=== PATIENT | male | born 1995 | race African-American/Black ===

== ENCOUNTER 2023-08-29 05:24 | Inpatient (IN) | payer OTHER ==
[2023-08-29] MEDS: SODIUM CHLORIDE 0.9% 500 ML INFUS.BAG IV ONE (06:27)
[2023-08-29 06:30] LABS: EPI CELLS 1 /uL (0-25.1); HYALINE CASTS 0 /uL (0-3.1); URINE APPEARANCE CLEAR; URINE BACTERIA 2 /uL (0-1359); URINE BILIRUBIN NEGATIVE (NEGATIVE); URINE COLOR YELLOW; URINE GLUCOSE (UA) 3+ (NEGATIVE); URINE KETONE 4+ (NEGATIVE); URINE LEUK ESTERASE NEGATIVE (NEGATIVE); URINE NITRITE NEGATIVE (NEGATIVE); URINE PROTEIN 2+ (NEGATIVE); URINE RBC 10 /uL (0-23.9); URINE UROBILINOGEN 0.2 mg/dL (0.2-1.0); URINE WBC 2 /uL (0-25.8)
[2023-08-29 06:31] LABS: VENOUS BASE EXCESS -9.6 mmol/L (-2-2); VENOUS O2 SATURATION 71.6 % (70-80); VENOUS PCO2 39.3 mmHg (38-52); VENOUS PH 7.253 (7.310-7.410)
[2023-08-29 06:46] LABS: CHLORIDE 84 mmol/L (98-107); SODIUM 127 mmol/L (136-145)
[2023-08-29 06:49] LABS: CO2 18 mmol/L (21-32); MAGNESIUM 2.5 mg/dL (1.8-2.4)
[2023-08-29 06:50] LABS: HEMATOCRIT 47.4 % (35.4-49); HEMOGLOBIN 16.4 GM/dL (11.7-16.9); MCH 23.2 pg (25.7-33.7); MCHC 34.6 g/dl (32.0-35.9); MEAN CELL VOLUME 67.1 fl (80-96); MEAN PLT VOLUME 10.6 fl (7.5-11.1); PLATELET COUNT 425 10^3/uL (134-434); RDW 18.5 % (11.9-15.9); WHITE BLOOD COUNT 13.2 K/mm3 (4.0-10.0)
[2023-08-29 06:52] LABS: CREATININE 1.8 mg/dL (0.55-1.3)
[2023-08-29 06:53] LABS: BILIRUBIN,TOTAL 1.5 mg/dL (0.2-1)
[2023-08-29 07:01] LABS: RBC 7.07 M/mm3 (4.00-5.60)
[2023-08-29 07:25] LABS: ALK PHOS 136 U/L (45-117); ANION GAP 25 mmol/L (4-13); BLOOD UREA NITROGEN 23.2 mg/dL (7-18); CALCIUM 7.6 mg/dL (8.5-10.1); GLUCOSE,RANDOM 821 mg/dL (74-106); POTASSIUM 6.5 mmol/L (3.5-5.1); TOT PROT 8.8 g/dl (6.4-8.2)
[2023-08-29] MEDS: LACTATED RINGERS SOLUTION 1,000 ML/1,000 ML INFUS.BAG IV STA ×2 (08:02→09:57)
[2023-08-29 08:14] LABS: CHLORIDE 87 mmol/L (98-107); POTASSIUM 5.6 mmol/L (3.5-5.1); SODIUM 131 mmol/L (136-145)
[2023-08-29 08:16] LABS: ANION GAP 24 mmol/L (4-13); CO2 20 mmol/L (21-32)
[2023-08-29 08:19] LABS: CREATININE 1.6 mg/dL (0.55-1.3)
[2023-08-29 08:22] LABS: BLOOD UREA NITROGEN 21.7 mg/dL (7-18); CALCIUM 7.6 mg/dL (8.5-10.1); GLUCOSE,RANDOM 745 mg/dL (74-106)
[2023-08-29] MEDS: INSULIN REGULAR 100 UNITS in SODIUM CHLORIDE 99 ML IVPB SCH (09:03)
[2023-08-29 09:45] LABS: ANISOCYTOSIS 2+; MACROCYTOSIS 0
[2023-08-29 09:47] LABS: PLATELET ESTIMATE ADEQUATE
[2023-08-29] MEDS: INSULIN REGULAR HUMAN 100 UNITS/ML *VIAL* (FOR IVP) IVPUSH ONE (09:50)
[2023-08-29] MEDS: LACTATED RINGERS SOLUTION 1,000 ML/1,000 ML INFUS.BAG IV SCH (09:58)
[2023-08-29] MEDS ORDERED: ENOXAPARIN NA (PORCINE) 40 MG/0.4 ML DISP.SYRIN SQ ONE (10:11)
[2023-08-29] MEDS: ENOXAPARIN NA (PORCINE) 40 MG/0.4 ML DISP.SYRIN SQ SCH (10:15)
[2023-08-29] MEDS: MUPIROCIN 2% TOPICAL OINTMENT FOR DECOLONIZATION NS SCH (11:38)
[2023-08-29 13:32] LABS: CHLORIDE 95 mmol/L (98-107); POTASSIUM 4.5 mmol/L (3.5-5.1); SODIUM 135 mmol/L (136-145)
[2023-08-29 13:34] LABS: ANION GAP 24 mmol/L (4-13); CO2 15 mmol/L (21-32)
[2023-08-29 13:38] LABS: CREATININE 1.4 mg/dL (0.55-1.3)
[2023-08-29 13:39] LABS: BLOOD UREA NITROGEN 19.1 mg/dL (7-18); CALCIUM 7.5 mg/dL (8.5-10.1); GLUCOSE,RANDOM 453 mg/dL (74-106)
[2023-08-29 15:12] LABS: ARTERIAL BLOOD GAS BASE EXCESS -7.4 mmol/L (-2-2); ARTERIAL BLOOD GAS PO2 91.9 mmHg (80-100); ARTERIAL BLOOD GAS pH 7.377 (7.350-7.450)
[2023-08-29 15:15] LABS: ALLENS TEST POSITIVE
[2023-08-29] MEDS: POTASSIUM CHLORIDE 20 MEQ in LACTATED RINGERS SOLUTION 1,000 ML IV SCH (16:45)
[2023-08-29 17:23] LABS: CHLORIDE 99 mmol/L (98-107); POTASSIUM 4.6 mmol/L (3.5-5.1); SODIUM 136 mmol/L (136-145)
[2023-08-29 17:25] LABS: ANION GAP 17 mmol/L (4-13); CO2 21 mmol/L (21-32); GLUCOSE,RANDOM 276 mg/dL (74-106)
[2023-08-29 17:29] LABS: CREATININE 1.3 mg/dL (0.55-1.3)
[2023-08-29 17:54] LABS: BLOOD UREA NITROGEN 15.9 mg/dL (7-18); CALCIUM 7.2 mg/dL (8.5-10.1)
[2023-08-29] MEDS: D5-1/2NS+40 MEQ KCL - 40 MEQ/1,000 ML INFUS.BAG IV SCH ×2 (18:53→21:12)
[2023-08-29] MEDS: ACETAMINOPHEN 1000 MG/100 ML BAG IVPB ONE (19:41)
[2023-08-29 20:21] LABS: CHLORIDE 97 mmol/L (98-107); POTASSIUM 4.8 mmol/L (3.5-5.1); SODIUM 133 mmol/L (136-145)
[2023-08-29 20:23] LABS: ANION GAP 13 mmol/L (4-13); CALCIUM 7.1 mg/dL (8.5-10.1); CO2 23 mmol/L (21-32); GLUCOSE,RANDOM 262 mg/dL (74-106)
[2023-08-29 20:25] LABS: AMYLASE 32 U/L (25-115)
[2023-08-29 20:26] LABS: BILIRUBIN,DIRECT < 0.1 mg/dL (0.0-0.2)
[2023-08-29 20:27] LABS: CREATININE 1.4 mg/dL (0.55-1.3)
[2023-08-29 20:55] LABS: BLOOD UREA NITROGEN 14.7 mg/dL (7-18)
[2023-08-29] MEDS: CHLORHEXIDINE GLUCONATE 4% CLEANSER FOR DECOLONIZATION TP SCH (21:12)
[2023-08-29] MEDS ORDERED: INSULIN REGULAR HUMAN 100 UNITS/ML *VIAL ONE (22:45)
[2023-08-30] MEDS: ACETAMINOPHEN 1000 MG/100 ML BAG IVPB PRN (01:19)
[2023-08-30 06:55] LABS: MAGNESIUM 1.9 mg/dL (1.8-2.4)
[2023-08-30 06:57] LABS: BASO % 0.7 % (0-2.0); HEMATOCRIT 35.9 % (35.4-49); HEMOGLOBIN 12.2 GM/dL (11.7-16.9); LYMPH % 41.9 % (8-40); MCH 21.5 pg (25.7-33.7); MCHC 34.1 g/dl (32.0-35.9); MEAN CELL VOLUME 63.3 fl (80-96); MEAN PLT VOLUME 9.5 fl (7.5-11.1); MONO % 9.9 % (3.8-10.2); NEUT % 46.5 % (42.8-82.8); PLATELET COUNT 206 10^3/uL (134-434); RBC 5.68 M/mm3 (4.00-5.60); WHITE BLOOD COUNT 8.1 K/mm3 (4.0-10.0)
[2023-08-30 06:59] LABS: PHOSPHOROUS 1.8 mg/dL (2.5-4.9)
[2023-08-30 07:57] LABS: CHLORIDE 101 mmol/L (98-107); POTASSIUM 3.7 mmol/L (3.5-5.1); SODIUM 135 mmol/L (136-145)
[2023-08-30] MEDS: DEXTROSE 5%-0.45% SALINE 1,000 ML IV SCH (07:59)
[2023-08-30 08:00] LABS: ALBUMIN 2.4 g/dl (3.4-5.0); ANION GAP 9 mmol/L (4-13); CALCIUM 7.2 mg/dL (8.5-10.1); CO2 25 mmol/L (21-32)
[2023-08-30 08:01] LABS: GLUCOSE,RANDOM 209 mg/dL (74-106)
[2023-08-30 08:03] LABS: CREATININE 1.2 mg/dL (0.55-1.3)
[2023-08-30 08:05] LABS: BILIRUBIN,TOTAL 0.6 mg/dL (0.2-1)
[2023-08-30] MEDS ORDERED: INSULIN ASPART SLIDING SCALE (NOVOLOG) 1 VIAL SQ ONE ×2 (08:10→17:01)
[2023-08-30] MEDS ORDERED: INSULIN REGULAR HUMAN 100 UNITS/ML *VIAL ONE (08:10)
[2023-08-30 08:33] LABS: ALK PHOS 79 U/L (45-117); BLOOD UREA NITROGEN 12.3 mg/dL (7-18); TOT PROT 6.3 g/dl (6.4-8.2)
[2023-08-30 08:41] LABS: ANISOCYTOSIS 2+; MACROCYTOSIS 0
[2023-08-30] MEDS: NAPH,MB-DB/K PH,MBDB POWDER PACKET PO ONE (08:42)
[2023-08-30] MEDS: amLODIPine BESYLATE 5 MG TABLET (FP) PO SCH (09:02)
[2023-08-30] MEDS: ENOXAPARIN NA (PORCINE) 40 MG/0.4 ML DISP.SYRIN SQ SCH (09:02)
[2023-08-30] MEDS: MAGNESIUM 1GM/D5W 100ML - 100 ML IVPB IVPB ONE (09:44)
[2023-08-30] MEDS: INSULIN REGULAR 100 UNITS in SODIUM CHLORIDE 99 ML IVPB SCH (12:24)
[2023-08-30] MEDS: LOSARTAN POTASSIUM 50 MG TABLET PO ONE (18:20)
[2023-08-30 18:35] LABS: LDL CHOLESTEROL (ONLY SJRH) 57 mg/dL (5-100)
[2023-08-30 18:36] LABS: POTASSIUM 3.7 mmol/L (3.5-5.1)
[2023-08-30 18:37] LABS: HDL CHOLESTEROL 37 mg/dL (40-60)
[2023-08-30 18:38] LABS: ALBUMIN 2.4 g/dl (3.4-5.0); CALCIUM 7.2 mg/dL (8.5-10.1)
[2023-08-30 18:43] LABS: BILIRUBIN,TOTAL 0.6 mg/dL (0.2-1)
[2023-08-30 18:49] LABS: CHOLESTEROL 398 mg/dL (50-200)
[2023-08-30 19:38] LABS: BLOOD UREA NITROGEN 7.9 mg/dL (7-18); CREATININE 1.1 mg/dL (0.55-1.3); TOT PROT 6.2 g/dl (6.4-8.2)
[2023-08-31 06:46] LABS: BASO % 4.7 % (0-2.0); HEMATOCRIT 35.7 % (35.4-49); HEMOGLOBIN 11.9 GM/dL (11.7-16.9); LYMPH % 43.9 % (8-40); MCH 21.4 pg (25.7-33.7); MCHC 33.3 g/dl (32.0-35.9); MEAN CELL VOLUME 64.2 fl (80-96); MEAN PLT VOLUME 9.6 fl (7.5-11.1); MONO % 7.4 % (3.8-10.2); PLATELET COUNT 178 10^3/uL (134-434); RBC 5.56 M/mm3 (4.00-5.60); RDW 16.9 % (11.9-15.9); WHITE BLOOD COUNT 6.1 K/mm3 (4.0-10.0)
[2023-08-31 07:02] LABS: CHLORIDE 102 mmol/L (98-107); POTASSIUM 3.5 mmol/L (3.5-5.1); SODIUM 136 mmol/L (136-145)
[2023-08-31 07:05] LABS: ALBUMIN 2.3 g/dl (3.4-5.0); ANION GAP 7 mmol/L (4-13); CO2 27 mmol/L (21-32); GLUCOSE,RANDOM 229 mg/dL (74-106); MAGNESIUM 2.1 mg/dL (1.8-2.4)
[2023-08-31 07:08] LABS: CREATININE 0.8 mg/dL (0.55-1.3); PHOSPHOROUS 1.9 mg/dL (2.5-4.9)
[2023-08-31 07:09] LABS: BILIRUBIN,TOTAL 0.5 mg/dL (0.2-1)
[2023-08-31 07:11] LABS: ALK PHOS 73 U/L (45-117); LDL CHOLESTEROL (ONLY SJRH) 54 mg/dL (5-100)
[2023-08-31 07:13] LABS: HDL CHOLESTEROL 39 mg/dL (40-60)
[2023-08-31 07:51] LABS: CHOLESTEROL 408 mg/dL (50-200)
[2023-08-31 08:25] LABS: BLOOD UREA NITROGEN 6.9 mg/dL (7-18); CALCIUM 7.4 mg/dL (8.5-10.1); TOT PROT 6.1 g/dl (6.4-8.2)
[2023-08-31] MEDS: LOSARTAN POTASSIUM 50 MG TABLET PO SCH (09:24)
[2023-08-31] MEDS: CALCIUM GLUC IN NACL, ISO-OSM 1 GM/50 ML BAG IVPB ONE (09:24)
[2023-08-31] MEDS: NAPH,MB-DB/K PH,MBDB POWDER PACKET PO SCH (09:24)
[2023-08-31] MEDS: D5-1/2NS+40 MEQ KCL - 40 MEQ/1,000 ML INFUS.BAG IV SCH ×2 (13:36→14:37)
[2023-08-31 14:25] LABS: POTASSIUM 3.6 mmol/L (3.5-5.1)
[2023-08-31 14:27] LABS: ALBUMIN 2.3 g/dl (3.4-5.0); BLOOD UREA NITROGEN 5.3 mg/dL (7-18); CALCIUM 7.6 mg/dL (8.5-10.1)
[2023-08-31 14:31] LABS: CREATININE 0.8 mg/dL (0.55-1.3)
[2023-08-31 14:32] LABS: BILIRUBIN,TOTAL 0.5 mg/dL (0.2-1); TOT PROT 6.1 g/dl (6.4-8.2)
[2023-08-31] MEDS: INSULIN REGULAR 100 UNITS in SODIUM CHLORIDE 99 ML IVPB SCH (14:36)
[2023-08-31] MEDS ORDERED: NAPH,MB-DB/K PH,MBDB POWDER PACKET PO SCH (16:00)
[2023-08-31 19:28] LABS: POTASSIUM 3.8 mmol/L (3.5-5.1)
[2023-08-31 19:33] LABS: CREATININE 0.9 mg/dL (0.55-1.3)
[2023-09-01 01:11] LABS: POTASSIUM 3.6 mmol/L (3.5-5.1)
[2023-09-01 01:12] LABS: CALCIUM 7.6 mg/dL (8.5-10.1)
[2023-09-01 01:13] LABS: BLOOD UREA NITROGEN 6.3 mg/dL (7-18)
[2023-09-01 01:16] LABS: CREATININE 0.8 mg/dL (0.55-1.3)
[2023-09-01] MEDS: KCL 10 MEQ IVPB 10 MEQ/100 ML INFUS.BAG IVPB SCH (01:55)
[2023-09-01] MEDS: POTASSIUM CHLORIDE ORAL LIQUID 20 MEQ/15 ML PO ONE (02:51)
[2023-09-01 07:24] LABS: BASO % 0.7 % (0-2.0); EOS % 2.2 % (0-4.5); HEMATOCRIT 37.8 % (35.4-49); HEMOGLOBIN 12.4 GM/dL (11.7-16.9); LYMPH % 47.2 % (8-40); MCH 20.9 pg (25.7-33.7); MCHC 32.8 g/dl (32.0-35.9); MEAN CELL VOLUME 63.5 fl (80-96); MEAN PLT VOLUME 8.7 fl (7.5-11.1); MONO % 9.1 % (3.8-10.2); NEUT % 40.8 % (42.8-82.8); PLATELET COUNT 161 10^3/uL (134-434); RBC 5.96 M/mm3 (4.00-5.60); RDW 17.7 % (11.9-15.9); WHITE BLOOD COUNT 4.9 K/mm3 (4.0-10.0)
[2023-09-01 07:33] LABS: POTASSIUM 4.4 mmol/L (3.5-5.1)
[2023-09-01 07:37] LABS: ALBUMIN 2.4 g/dl (3.4-5.0); CALCIUM 8.1 mg/dL (8.5-10.1)
[2023-09-01 07:38] LABS: MAGNESIUM 2.1 mg/dL (1.8-2.4)
[2023-09-01 07:41] LABS: CREATININE 0.7 mg/dL (0.55-1.3)
[2023-09-01 07:42] LABS: BILIRUBIN,TOTAL 0.4 mg/dL (0.2-1); PHOSPHOROUS 2.3 mg/dL (2.5-4.9); TOT PROT 6.5 g/dl (6.4-8.2)
[2023-09-01] MEDS ORDERED: DEXTROSE 5%-0.45% SALINE 1,000 ML IV SCH (18:30)
[2023-09-01 18:32] LABS: CALCIUM 8.2 mg/dL (8.5-10.1)
[2023-09-01 18:33] LABS: BLOOD UREA NITROGEN 3.5 mg/dL (7-18)
[2023-09-01 18:36] LABS: CREATININE 0.5 mg/dL (0.55-1.3)
[2023-09-01] MEDS ORDERED: INSULIN ASPART SLIDING SCALE (NOVOLOG) 1 VIAL SQ ONE (21:58)
[2023-09-01] MEDS: D5-1/2NS+40 MEQ KCL - 40 MEQ/1,000 ML INFUS.BAG IV SCH (22:08)
[2023-09-02] MEDS ORDERED: DEXTROSE 50%-WATER 25 GM/50 ML DISP.SYRIN ONE (00:18)
[2023-09-02 07:02] LABS: POTASSIUM 4.2 mmol/L (3.5-5.1)
[2023-09-02 07:05] LABS: CALCIUM 8.2 mg/dL (8.5-10.1)
[2023-09-02 07:06] LABS: BLOOD UREA NITROGEN 3.4 mg/dL (7-18)
[2023-09-02 07:09] LABS: CREATININE 0.7 mg/dL (0.55-1.3)
[2023-09-03] MEDS: INSULIN REGULAR 100 UNITS in SODIUM CHLORIDE 99 ML IVPB SCH (06:12)
[2023-09-03 07:13] LABS: POTASSIUM 4.3 mmol/L (3.5-5.1)
[2023-09-03 07:16] LABS: CALCIUM 7.8 mg/dL (8.5-10.1)
[2023-09-03 07:17] LABS: ALBUMIN 2.3 g/dl (3.4-5.0); BLOOD UREA NITROGEN 5.1 mg/dL (7-18)
[2023-09-03 07:20] LABS: CREATININE 0.6 mg/dL (0.55-1.3)
[2023-09-03 07:21] LABS: TOT PROT 6.1 g/dl (6.4-8.2)
[2023-09-03 07:22] LABS: BILIRUBIN,TOTAL 0.3 mg/dL (0.2-1)
[2023-09-03] MEDS: FENOFIBRIC ACID 135 MG CAP PO SCH (10:30)
[2023-09-03] MEDS: INSULIN ASPART SLIDING SCALE (NOVOLOG) 1 VIAL SQ SCH (21:14)
[2023-09-03] MEDS: INSULIN (LEVEMIR) 100 UNITS/ML UNITS SQ SCH (21:20)
[2023-09-03] MEDS: ROSUVASTATIN CA 10 MG TABLET PO SCH (22:17)
[2023-09-04 07:17] LABS: BASO % 0.4 % (0-2.0); EOS % 2.4 % (0-4.5); HEMATOCRIT 36.5 % (35.4-49); HEMOGLOBIN 11.6 GM/dL (11.7-16.9); LYMPH % 33.2 % (8-40); MCH 20.4 pg (25.7-33.7); MCHC 31.8 g/dl (32.0-35.9); MEAN CELL VOLUME 64.4 fl (80-96); MONO % 11.2 % (3.8-10.2); NEUT % 52.8 % (42.8-82.8); PLATELET COUNT 202 10^3/uL (134-434); RBC 5.66 M/mm3 (4.00-5.60); RDW 17.2 % (11.9-15.9)
[2023-09-04 07:29] LABS: POTASSIUM 4.6 mmol/L (3.5-5.1)
[2023-09-04 07:34] LABS: ALBUMIN 2.5 g/dl (3.4-5.0); CALCIUM 8.5 mg/dL (8.5-10.1); MAGNESIUM 1.7 mg/dL (1.8-2.4)
[2023-09-04 07:36] LABS: PHOSPHOROUS 2.9 mg/dL (2.5-4.9)
[2023-09-04 07:37] LABS: CREATININE 0.7 mg/dL (0.55-1.3)
[2023-09-04 07:39] LABS: BILIRUBIN,TOTAL 0.4 mg/dL (0.2-1); TOT PROT 6.3 g/dl (6.4-8.2)
[2023-09-04 09:08] LABS: ANISOCYTOSIS 2+; MACROCYTOSIS 0; TARGET CELLS 1+; TEAR DROP CELLS 1+
[2023-09-04] MEDS: MAGNESIUM SULF 50% (8.12 MEQ/2 ML-1 GM VIAL) IVPB ONE (09:44)
[2023-09-04] MEDS: LACTATED RINGERS SOLUTION 1,000 ML/1,000 ML INFUS.BAG IV SCH (10:19)
[2023-09-04 10:33] LABS: RETICULOCYTES 1.49 % (0.5-1.5)
[2023-09-04 14:59] VITALS: BMI 42.2
[2023-09-05 02:18] VITALS: RESP 18
[2023-09-05] MEDS: LACTATED RINGERS SOLUTION 1,000 ML/1,000 ML INFUS.BAG IV SCH (03:15)
[2023-09-05] MEDS: INSULIN ASPART SLIDING SCALE (NOVOLOG) 1 VIAL SQ SCH (06:20)
[2023-09-05 06:48] VITALS: PULSE 97; TEMP 97.5
[2023-09-05 09:34] LABS: BASO % 0.5 % (0-2.0); HEMATOCRIT 37.1 % (35.4-49); HEMOGLOBIN 11.9 GM/dL (11.7-16.9); LYMPH % 34.9 % (8-40); MCH 20.4 pg (25.7-33.7); MCHC 32.1 g/dl (32.0-35.9); MEAN CELL VOLUME 63.5 fl (80-96); MEAN PLT VOLUME 9.2 fl (7.5-11.1); MONO % 12.5 % (3.8-10.2); NEUT % 50.1 % (42.8-82.8); PLATELET COUNT 253 10^3/uL (134-434); RBC 5.84 M/mm3 (4.00-5.60); RDW 17.1 % (11.9-15.9); WHITE BLOOD COUNT 3.9 K/mm3 (4.0-10.0)
[2023-09-05] MEDS: ENOXAPARIN NA (PORCINE) 40 MG/0.4 ML DISP.SYRIN SQ SCH (10:04)
[2023-09-05] MEDS: amLODIPine BESYLATE 5 MG TABLET (FP) PO SCH (10:04)
[2023-09-05] MEDS: LOSARTAN POTASSIUM 50 MG TABLET PO SCH (10:04)
[2023-09-05] MEDS: FENOFIBRIC ACID 135 MG CAP PO SCH (10:04)
[2023-09-05 10:10] VITALS: BP 165/105
[2023-09-05 10:16] LABS: ALBUMIN 2.9 g/dl (3.4-5.0); MAGNESIUM 2.1 mg/dL (1.8-2.4)
[2023-09-05 10:18] LABS: BILIRUBIN,DIRECT 0.1 mg/dL (0.0-0.2); BILIRUBIN,TOTAL 0.5 mg/dL (0.2-1)
[2023-09-05 10:20] LABS: PHOSPHOROUS 2.6 mg/dL (2.5-4.9)
[2023-09-05 10:21] LABS: TOT PROT 6.9 g/dl (6.4-8.2)
[2023-09-05] MEDS ORDERED: INSULIN (LEVEMIR) 100 UNITS/ML UNITS SQ SCH (22:00)
[2023-09-05] MEDS ORDERED: ROSUVASTATIN CA 10 MG TABLET PO SCH (22:00)
== END 2023-09-05 12:40 | disposition home or self-care (01) | DRG 420 ==
LOC: JER 05:24 → JERBED 08:34 → JICU 14:23 → J8W 09-04 21:30
PROVIDERS: ADMIT Internal Medicine Pulmonary Disease; ATTEND Nurse Practitioner Acute Care
PROC: 04HK33Z Insertion of Infusion Device into Right Femoral Artery, Percutaneous Approach (ICD-10-PCS; principal; 2023-08-29)
DX: E11.10 Type 2 diabetes mellitus with ketoacidosis without coma (principal); N17.9 Acute kidney failure, unspecified; E78.1 Pure hyperglyceridemia; E86.0 Dehydration; E66.01 Morbid (severe) obesity due to excess calories; Z68.41 Body mass index [BMI] 40.0-44.9, adult; K59.00 Constipation, unspecified; R35.89 Other polyuria; G47.33 Obstructive sleep apnea (adult) (pediatric); I10 Essential (primary) hypertension
CPT/HCPCS: 36415; 36600; 71045-TC-FY; 76775-TC; 80048; 80053; 80061; 80076; 81003; 82010; 82150; 82247; 82248; 82570; 82728; 82803; 82962; 83036; 83540; 83550; 83690; 83735; 84100; 84156; 84439; 84443; 84478; 84484; 85025; 85045; 86850; 86900; 86901; 87086; 87102; 87210; 87635; 93005; 93010; 94010; 94660; 99291; J0131